=== PATIENT | female | born 1980 | race Caucasian/White ===

== ENCOUNTER 2016-09-03 00:47 | Inpatient (IN) | payer OTHER ==
[~2016-09-03] VITALS: Ht 165.1 cm; Wt 94.3 kg
[2016-09-03] MEDS ORDERED: Dextrose 5% Lactated Ringer's 1,000 ML IV SCH (07:34)
[2016-09-03] MEDS ORDERED: Insulin Human REGular Inj 100 UNIT in 0.9% Sodium Chloride 100 ML IV SCH (07:34)
[2016-09-03] MEDS ORDERED: Hemorrhage Kit, Post Partum XX ONE (07:35)
[2016-09-03] MEDS ORDERED: Oxytocin 10 Unit/mL Inj IM PRN (07:35)
[2016-09-03] MEDS ORDERED: Methylergonovine 0.2 mg/mL Inj IM PRN (07:35)
[2016-09-03] MEDS ORDERED: Sodium Chloride LOK Flush 10 mL Syringe IVFLUSH PRN (07:35)
[2016-09-03] MEDS ORDERED: Oxytocin 30 Units/500 mL LR 30 UNITS in IV Premix 1 EACH IV PRN (07:35)
[2016-09-03] MEDS ORDERED: Carboprost 250 mCg/mL Inj IM PRN (07:35)
[2016-09-03] MEDS ORDERED: Misoprostol 25 mCg/0.25 Tablet VAGINAL SCH (07:40)
--- NOTE | 2016-09-03 08:03 | PCM.HPOB ---
Subjective Date of Service: Sep 03, 2016 Referring Provider: Admitting Physician: Pooja Flanagan MD Primary Care Physician: Pooja Flanagan MD Attending Physician: Pooja Flanagan MD Chief Complaint Induction of labor for poorly controlled type 2 diabetes History of Present History of Present Illness Avril Burch is a 35 year old primagravid woman at 39 weeks gestation with a PMH of poorly controlled DM2 with an A1c of 9.2 in early , polycystic ovarian syndrome, active 1/2 ppd smoker, and infertility requiring clomid for conception. She presents today for induction of labor at 39 weeks due to poorly controlled DM2. Typically her fasting sugars are quite elevated in the 150-190 range, she is insulin dependent using 46U in the am and 86U pm. 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 Initial US revealed possible IUGR, but this has since resolved with the last scan indicating weight in the 30th percentile. The remainder of her labs have been unremarkable. Morning fasting glucose on the day of admission was 130. OB History: (1), Para (0) Past Medical History Obstetrical History: Primagravid Gynecologic History: Polycystic ovarian syndrome Medical History: DM2 Hx Tobacco Use: Yes Smoking Status: Current Every Day Smoker (1/2 ppd) Past Family History Living Arrangement: with Family Genetic Screening/Counseling Genetic Screening/Counseling: Negative Baby father-had child w defect: No Review of Systems Constitutional: Y: Change of appitite, Chills, Dizziness, Fever, Malaise, Other , Pain, Sweats, Weakness, Weight loss Eyes: Denies: Blurred Vision, Conjunctive Inflammation, Double Vision, Eyelid Inflammation, Other, Pain, Redness, Vision Changes ENT: Denies: Dental Problems, Dysphagia, Ear Discharge, Ear Pain, Hoarseness, Membranes Dry, Nasal Congestion, Nose Discharge, Nose Pain, Other, Throat Pain, Tinnitus, Ulcers/Sores in Mouth Cardiovascular: Denies: Chest Pain, Edema, Orthopnea, Other, Palpitations, SOB while laying flat Respiratory: Denies: Cough, Cough with bloody sputum, Other, Pleuritic Chest Pain, Pleuritic Chest Pain, SOB with Exertion, Sputum, Wheezing Gastrointestinal: Denies: Abdominal Pain, Black tarry stools, Blood in stool ( red), Change in Appetite, Constipation, Diarrhea, Epigastric pain, Heartburn, Nausea, Other, Use of Laxatives, Vomiting Genitourinary: Denies: Anuria, Change in Frequency, Dysuria, Hematuria, Incontinence, Nocturia, Other, Retention Musculoskeletal: Reports: Back Pain, Denies: Deformity, Limitation of Function, Neck Pain, Other, Redness, Shoulder Pain, Swelling Skin/Breasts: Denies: Bruising, Discharge, Dry or Flakiness, Jaundice, Lesions , Masses, Mastalgia, Other, Rash, Scars, Ulcers Skin: Denies: Bruising, Dry or Flakiness, Jaundice, Lesions, Other, Rash, Scars , Ulcers Neurological: Denies: Change in Speech, Confusion, Dizziness, Incoordination, Numbness, Other, Seizures, Somnolence, Tremors, Weakness Psychologic: Reports: Anxious, Denies: Agitation, Apprehensive, Depression, Insomnia, Instability, Nervousness, Other Allergy Coded Allergies: No Known Allergies (Unverified , 09/03/16) Exam Constitutional: Well-developed, Well-nourished, Obese, Well-groomed HEENT: Atraumatic, PERRLA, EOMI, Scleral Anicteric, Mucous Membr Moist/[place] Lungs: Clear to Auscultation, Clear to Percussion, Normal Air Movement Heart: Regular Rate/Rhythm, Normal S1, Normal S2, No Murmurs/Rubs/Gallops Abdomen: Gravid Extremities: Edema (mild) Neurological/Psychiatric: Alert, Oriented X3, Cooperative, No Acute Distress Neuro: Grossly Neurologically Intact Labs/Diagnostics Maternal Blood Type: AB Hx Rho(D) Immune Globulin: No Group B Strep Results: Negative Previous Infant with GBS: No Rubella: Non-Immune Lab History: Positive for: Hx Herpes OB Intrapartum Assessment/Plan Problems: (1) Type 2 diabetes mellitus Plan: -Usual dosing 46U am, 86U pm, took half dose of insulin on day of admit -Plan on starting out on medium dose Normal insulin sliding scale with BG check q2hr -Will transition to insulin drip during active labor or if BG not controlled with sliding scale -Diabetic constant carb diet Status: Acute ICD Code: E11.9 (2) Elective induction of labor planned Plan: -Cervix currently closed, 50% effaced, -3 station -Begin with Misoprostol -Likely transition to balloon dilation once cervix opens Status: Acute ICD Code: [id number] Pain Evaluation: Adequate Pain Control Intrapartum plan induction as above Post plan: Continue routine post care Attending Statement at 39 weeks, type 2 diabetes, induction of labor, as recommended by MFM. With unfavorable cervix. Will need start with cervical ripening. Will do sliding scale to control her glucose level. Patient will eat light fool during cervical ripening. Plan insulin drip with active labor. Edwin Joseph DO Sep 03, 2016 08:03 Pooja Flanagan MD Sep 05, 2016 15:49
[2016-09-03 08:18] LABS: Mean Corpuscular Hemoglobin 28.4 pg (27.0-35.0); Mean Corpuscular Volume 85.4 fL (81-100)
[2016-09-03] MEDS: Lactated Ringer's 1,000 ML IV PRN (12:54)
[2016-09-03] MEDS: Insulin Human REGular 300 Unit/3 mL Inj SUBQ SCH (16:10)
[2016-09-04] MEDS: Lactated Ringer's 1,000 ML IV PRN ×3 (03:15→10:09)
--- NOTE | 2016-09-04 07:47 | PCM.PNOBIP ---
Subjective Date of Service Sep 04, 2016 Visit History Avril Burch is a 35 year old primagravid woman at 39 weeks gestation with a PMH of poorly controlled DM2 with an A1c of 9.2 in early , polycystic ovarian syndrome, active 1/2 ppd smoker, and infertility requiring clomid for conception. She presents today for induction of labor at 39 weeks due to poorly controlled DM2. Typically her fasting sugars are quite elevated in the 150-190 range, she is insulin dependent using 46U in the am and 86U pm. 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 Initial US revealed possible IUGR, but this has since resolved with the last scan indicating weight in the 30th percentile. The remainder of her labs have been unremarkable. Morning fasting glucose on the day of admission was 130. She was initially administered cervidil, which failed to produce any great change in the cervix so balloon dilation was initiated. That too has thus far failed to induce any significant cervical dilation as of 7:00 am. Subjective Avril states that she is feeling quite tired because she has been having uncomfortable contractions all evening that precluded sleep. She is expressing significant frustration today that she hasn't made much cervical progress. She denies nausea, but states that she has an overall feeling of "not feeling well" , which she was unable to define any further. Pain Management: PO pain meds Group B Strep Results: Negative Rubella: Non-Immune Blood Type: AB Labs Laboratory Tests 09/03/16 08:00: White Blood Count 11.3, Red Blood Count 3.84, Hemoglobin 10.9, Hematocrit 32.8, Mean Corpuscular Volume 85.4, Mean Corpuscular Hemoglobin 28.4, Mean Corpuscular Hemoglobin Concent 33.2, Red Cell Distribution Width 13.2, Platelet Count 309 Exam Vital Signs Vital Signs Contraction frequency in minutes: MVUs: Vital Signs: VS reviewed, stable Heart Tracings Heart Tones Baseline bpm Tocometry/IUPC Contraction frequency in minutes: MVUs: Exam Abdomen: Fundus firm, Abdomen soft Extremities: No tenderness/swelling, Edema 1+ Lungs: Clear to Auscultation, Clear to Percussion, Normal Air Movement Heart: Regular Rate/Rhythm, Normal S1, Normal S2, No Murmurs/Rubs/Gallops General: Alert, Oriented X3, Cooperative, No Acute Distress OB Intrapartum Assessment/Plan Problems: (1) Type 2 diabetes mellitus Plan: -Usual dosing 46U am, 86U pm, took half dose of insulin on day of admit -Plan on starting out on medium dose Normal insulin sliding scale with BG check q2hr -Will transition to insulin drip during active labor or if BG not controlled with sliding scale -Diabetic constant carb diet Status: Acute ICD Code: E11.9 (2) Elective induction of labor planned Plan: -Balloon removed early AM 09/04/16 -Patient currently declining further Misoprostol -Cervix essentially closed as of AM 09/04/16 -Will continue to monitor and encourage further cervical ripening Status: Acute ICD Code: [id number] Intrapartum plan: Continue expected management Intrapartum Pain Management: May have epidural when desired Pain Evaluation: Adequate Pain Control Post plan: Continue routine post care Attending Statement at 39 weeks. Type 2 diabetes. Induction of labor. She has been through 24 hrs of cervical ripening. No improvement of cervix. head still floating. I discussed with patient of the situation and plan. At this time, her glucose is under control. heart tracing is reassuring. We could continue with cervical ripening. But according to the process of last 24 hrs, it will be a lone process. There's still the chance of failed induction. And by pelvic examination her pelvis is borderline. Patient declined to continue with cervical ripening and chose to have c/section. I also agree this is a reasonable choice at this moment. But we discussed in detail about the risk of c /section too. Informed consent signed. Edwin Joseph DO Sep 04, 2016 07:14 Pooja Flanagan MD Sep 05, 2016 16:02
[2016-09-04] MEDS: Insulin Human REGular 300 Unit/3 mL Inj SUBQ SCH ×4 (08:14→18:30)
[2016-09-04] MEDS ORDERED: Acyclovir 400 mg Tablet PO SCH (08:30)
--- NOTE | 2016-09-04 08:38 | PCM.HPANE ---
Patient Data Date of Service: Sep 04, 2016 Surgeon Admitting Provider:Pooja Flanagan MD Attending Provider:Pooja Flanagan MD Primary Care Physician:Pooja Flanagan MD Other Provider:Miguel Ángel Calderon Anesthesia Reason for Visit Induction INDUCTION Ht/WT & BMI Body Mass Index Allergies Coded Allergies: No Known Allergies (Unverified , 09/03/16) Diabetes History Hx Diabetes?: Yes Type of Diabetes: Type II Glycemic Control: Insulin Dependent Current Bedside Blood Glucose: 224 Medications Hypertension Medication: No Home Meds Incl Beta Deyanira: No History History of ENT Problems?: No Hx of Heart Problems?: No Other History/Comment tobacco Hx Neurologic Problems?: No Gastrointestinal History: Positive for:: Gastroesphageal Reflux Other History/Comment Female Hx: Positive for:: Currently Hx Musculoskeletal Problems?: No Hx of Psycho/Social Problems?: No Bedside Blood Glucose: 224 Smoking Status: Current Every Day Smoker (08/31 ppd) Stop/Bang Treated for Sleep Apnea?: No Do You Have a CPAP Machine?: No S-Snoring: Do You Snore Loudly: No T-Tired: feel tired, fatigued: No O-Obsered: Observed not breath: No P-Blood Pressure: treated: No B- Body Mass Index > 35 kg/m2: No A- Age over 50: No N- Neck Large Circumference: No G- Gender Male: No DOTTIE Risk Assessment: Low Risk, <3 Yes Risk Assessment Category Category 1A: Patient has history of documented sleep apnea, and HAS NOT received any narcotic, sedative or anesthesia administration during this stay. Category 1B: Patient has history of documented sleep apnea, and HAS received any narcotic , sedative or anesthesia administration during this stay Category 2: Patient has SUSPECTED Obstructive Sleep Apnea, and HAS received any narcotic , sedative or anesthesia administration during this stay. Category 3: Patient has SUSPECTED Obstructive Sleep Apnea and HAS NOT received narcotic, sedative or anesthesia administration during this stay. Category 4: Outpatient in Procedural Areas with known sleep apnea or who screen positive for High Risk via the STOP/BANG questionnaire. Exam Exam General Appearance: Oriented X3 HEENT/AIRWAY: MP 2 Lungs: Clear to Auscultation Heart: Exam Unremarkable Meds/Labs/Diagnostics Bedside Blood Glucose: 224 Labs Test 09/03/16 08:00 White Blood Count 11.3th/mm3 (3.8-10.1) Red Blood Count 3.84mil/mm3 (3.90-5.20) Hemoglobin 10.9g/dL (12.0-15.6) Hematocrit 32.8% (35.0-46.0) Mean Corpuscular Volume 85.4fL (81-100) Mean Corpuscular Hemoglobin 28.4pg (27.0-35.0) Mean Corpuscular Hemoglobin Concent 33.2% (32.0-37.0) Red Cell Distribution Width 13.2% (12.3-15.4) Platelet Count 309bil/L (150-400) Plan Impression Patient chart reviewed, patient interviewed and anesthestic plan with risks, benefits, and alternatives discussed, and informed consent obtained. ASA Physical Status: ASA3 Severe Disease Anesthetic Plan: SAB Bene/Risks/Altern/Consents: Yes HP Complete Prior to Induction: Yes Other Patient last ate peanut butter toast at 645am. I have discussed this with the attending OB physician who feels that Ms Burch's case is urgent in the setting of prolonged stage 1 labor after failed induction in the setting of uncontrolled diabetes. Her concern is that this represents a risk to mother and baby. I have reiterated NPO guidelines, and we both acknowledge that in the setting of urgent cases, NPO guidelines becomes a risk/benefit proposition. I defer to her to help me weigh the benefits and risks of Ms Burch's medical condition as the attending OB. We have elected to proceed prior to 8 hr NPO guideline in this particular situation. I have discussed this with the patient, and she acknowledges and accepts proceeding prior to 8 hrs. Valentino Moore MD Sep 04, 2016 08:38
[2016-09-04] MEDS ORDERED: CeFAZolin Inj 2 GM in IV Premix 1 EACH IV SCH (09:30)
[2016-09-04] MEDS ORDERED: Sodium Citrate-Citric Acid 15 mL Solution PO SCH (09:30)
[2016-09-04] MEDS ORDERED: fentaNYL-PF 50 mCg/mL 2 mL Inj IVPUSH PRN (12:30)
[2016-09-04] MEDS ORDERED: EPHEDrine Sulfate 50 mg/mL Inj IVPUSH PRN (12:30)
[2016-09-04] MEDS ORDERED: HYDROmorphone 1 mg/mL Inj IVPUSH PRN (12:30)
[2016-09-04] MEDS ORDERED: Ondansetron 2 mg/mL 2 mL Inj IVPUSH PRN (12:30)
[2016-09-04] MEDS ORDERED: Atropine 0.4 mg/mL Inj IV PRN (12:30)
[2016-09-04] MEDS ORDERED: Oxytocin 30 Units/500 mL LR 30 UNITS in IV Premix 1 EACH IV PRN (12:55)
[2016-09-04] MEDS ORDERED: Methylergonovine 0.2 mg/mL Inj IM PRN (12:55)
[2016-09-04] MEDS ORDERED: Oxytocin 10 Unit/mL Inj IM PRN (12:55)
[2016-09-04] MEDS ORDERED: Acetaminophen IV 1,000 MG in IV Premix 1 EACH IV PRN (12:55)
[2016-09-04] MEDS ORDERED: HYDROcodone-APAP 5-325 mg Tablet PO PRN (12:55)
[2016-09-04] MEDS ORDERED: Carboprost 250 mCg/mL Inj IM PRN (12:55)
[2016-09-04] MEDS ORDERED: LANOlin HPA 7 Gm Ointment TOPICAL PRN (12:55)
[2016-09-04] MEDS ORDERED: Hemorrhage Kit, Post Partum XX ONE (12:55)
[2016-09-04] MEDS ORDERED: Sodium Chloride LOK Flush 10 mL Syringe IVFLUSH PRN (12:55)
[2016-09-04] MEDS ORDERED: Oxytocin 30 Units/500 mL LR Premix IV ONE (13:06)
--- NOTE | 2016-09-04 13:45 | PROG NOTE ---
[address] [address] PROGRESS NOTE PATIENT: BROOKE NUNO : 1980 MR#: [id number] ADMIT: 09/03/2016 JOB ID: [id number] DATE: 09/04/2016 This is a 35-year-old female 1, para 0, at 39 weeks. She was admitted yesterday on September 03, 2016, in the morning for induction of labor for type 2 diabetes in which the glucose is not well controlled. After the patient was admitted she was examined and her cervix is not favorable. It is closed, long, posterior, moderate, and the head was floating. Cytotec was given for cervical ripening yesterday morning and the patient started to have frequent contractions with one dose of Cytotec but the contractions were mild. There was no 2nd dose able to be given because of the frequent although mild contractions. I examined her at 12:00 and 5:00. There was no significant change of her cervix. At 5:00 she still had contractions every 3-4 minutes. After discussion, the plan was made to have a cervical ripening balloon. It was placed at around 5 p.m. yesterday. The patient tolerated the ripening balloon. She started to have contractions after the balloon was placed. The balloon stayed for 12 hours and removed in the morning around 5:30 and noticed that there was no change of her cervix. I discussed with patient at 7:00 this morning. Talked about for further cervical ripening we could use more dosage of Cytotec or Cervidil but at this time with the cervix I am not able to the use induction with Pitocin. She is not going to respond well to the Pitocin induction. After discussion, the patient does not want to continue with induction and she chose to have a primary section. I also think this is an acceptable choice with borderline pelvis from previous examination and still has a borderline pelvic examination and her type 2 diabetes is not well controlled and she went through more than 24 hours of cervical ripening and there is not any progress. The patient, if she planned to continue with ripening and induction, it will be expected that it will be a long process. The patient, at the same time, understood that the procedure was a surgery and had its own risks. I discussed with the patient about the risk of infection, bleeding, injury to the organs around the uterus including but not limited to the bladder, ureters, major vessels, nerves, and bowels, and talked with patient specifically for the risk of infection. Informed consent signed. The patient decided to have a primary section.
[2016-09-04] MEDS: Lactated Ringer's 1,000 ML IV SCH ×2 (13:51→22:12)
--- NOTE | 2016-09-04 14:17 | OP ---
[address] [address] OPERATIVE REPORT PATIENT: BROOKE NUNO : 1980 MR#: [id number] ADMIT: 09/03/2016 JOB ID: [id number] DATE OF SURGERY: 09/04/2016 IDENTIFYING DATA: This is a 35-year-old female, 1, para 1, now status post primary section. SURGEON: Pooja Flanagan MD. COMPOSING ROOM SUPERVISOR: Edwin Joseph DO, third year resident. INDICATION OF PROCEDURE: A 35-year-old female, 1, para 0, at 39 weeks. Type 2 diabetes not well controlled. Failed induction. Before the decision of the section, discussed with patient about the benefits, risks of primary section including infection, bleeding, injury to organs around the uterus including, but not limited to, the bladder, ureters, major vessels, nerves, and bowel. Informed consent signed. PREOPERATIVE DIAGNOSIS(ES): 1. A 35-year-old female, 1, para 0, at 39 weeks. 2. Type 2 diabetes, not well controlled. 3. Failed induction. POSTOPERATIVE DIAGNOSIS(ES): 1. A 35-year-old female, 1, para 0, at 39 weeks. 2. Type 2 diabetes, not well controlled. 3. Failed induction. PROCEDURE IN DETAIL: The patient was transferred to the operating room. Antibiotics were given before the procedure. The SCDs were on. After anesthesia was noted to be adequate, she was placed in dorsal supine position with leftward tilt. She was prepared and draped in normal sterile fashion. A Roa catheter inserted for urine drainage. A transverse incision was placed with scalpel and this incision was carried through to the underlying fascia with Bovie. A transverse incision was placed on fascia and extended bilaterally by Barrientos scissors. The superior aspect of the incision was grasped by straight Shabbir, tented up. The underlying rectus muscle was dissected off. The inferior aspect of the incision was grasped by straight Shabbir tented up. The underlying rectus muscle dissected off. The rectus muscle was in the midline. The underlying peritoneum identified and entered sharply. This incision was extended both sharply and bluntly. Then, the lower blade inserted to expose the lower segment of the uterus. The vesicouterine peritoneum identified and entered sharply with Bardolph scissors and extended bilaterally by Kira scissors. The bladder blade created digitally. The lower blade reinserted to expose the lower segment of the uterus. A transverse incision was placed on the lower segment of the uterus and extended bilaterally by bandage scissors. At this time, the membrane was ruptured. All the instruments cleared from the field. It was noticed that the head still floating and with fundal pressure, there was difficulty delivering the head. At this time, the vacuum was applied to deliver the head and then the shoulders and chest delivered without difficulty. There was one round nuchal cord loose and released, and the cord clamped and cut. The infant was handed to awaiting radio board operator announcer. The cord blood gas was collected. Regular cord blood collected. The placenta delivered spontaneously completely and examined with three-vessel cord. At this time, the uterus was exteriorized. All debris and clots cleared from the field. The incision was closed by 0 Vicryl continuously with locked fashion. The second layer with the same suture was placed for imbrication. Hemostasis confirmed after the placement of the sutures. The pelvic cavity was irrigated by warm normal saline and the bilateral adnexa examined. Normal ovaries and normal tubes. The uterus was returned back to the abdominal cavity. The incision was re-examined with good hemostasis. At this time, the fascia was reapproximated with 0 Vicryl continuously. The subcutaneous connective tissue was reapproximated with 2-0 Vicryl continuously. The skin was closed by 4-0 Monocryl on a Devonte needle. The patient tolerated the procedure well. All instrument, needles, laps and gauzes counted correct twice. The EBL during the procedure was 800 cc. The IV fluid in was 1.5 L. The urine output was 200 cc which was clear. The patient transferred to recovery room in a stable condition.
[2016-09-04] MEDS ORDERED: Ondansetron 2 mg/mL 2 mL Inj ONE (14:19)
[2016-09-04] MEDS ORDERED: Propofol 10,000 mCg/mL 20 mL Inj ONE (14:19)
[2016-09-04] MEDS ORDERED: EPHEDrine/NS 5 mg/mL 5 mL Syringe ONE (14:19)
[2016-09-04] MEDS ORDERED: Morphine PF 1 mg/mL 10 mL Inj ONE (14:35)
--- NOTE | 2016-09-04 16:36 | PCM.ANEP1 ---
Post Anesthesia Phase 1 PACU Phase 1 Assessment Date of Service: Sep 04, 2016 Anesthetic Administered: SAB Level of Alertness: Awake, talking ALCANTARA's with Equal Strength: No Pain Scale Score: 3 Nausea or Vomiting: No Lungs: Clear to Auscultation Valentino Moore MD Sep 04, 2016 16:36
--- NOTE | 2016-09-04 16:37 | PCM.ANEP2 ---
Post Anesthesia Evaluation ASA/CMS Post Anesthesia VS in Patient's Normal Range?: Yes Resp Stable; Airway Patent?: Yes CV Function & Hydration Stable: Yes Mental Status Recovered?: Yes Pain control Satisfactory?: Yes N/V Control Satisfactory?: Yes Additional Comments block wearing off with full sensation in lower extremities b/l Valentino Moore MD Sep 04, 2016 16:37
[2016-09-04] MEDS: Acyclovir 400 mg Tablet PO SCH (20:50)
[2016-09-04] MEDS: Insulin Human NPH 100 Unit/mL 3 mL Inj SUBQ SCH (23:49)
[2016-09-05] MEDS: Insulin Human REGular 300 Unit/3 mL Inj SUBQ SCH ×2 (02:29→18:21)
[2016-09-05 06:44] LABS: Mean Corpuscular Hemoglobin 28.4 pg (27.0-35.0); Mean Corpuscular Volume 87.1 fL (81-100)
[2016-09-05] MEDS: Acyclovir 400 mg Tablet PO SCH ×2 (08:34→20:52)
[2016-09-05] MEDS: Pantoprazole 40 mg ER24 Tablet PO SCH (08:34)
[2016-09-05] MEDS: Insulin Human NPH 100 Unit/mL 3 mL Inj SUBQ SCH ×2 (08:34→22:00)
[2016-09-05] MEDS: oxyCODONE-Acetamin 5-325 mg Tablet PO PRN ×2 (18:08→21:59)
[2016-09-06] MEDS: oxyCODONE-Acetamin 5-325 mg Tablet PO PRN ×4 (02:05→11:58)
[2016-09-06] MEDS: Pantoprazole 40 mg ER24 Tablet PO SCH (07:47)
[2016-09-06] MEDS: Acyclovir 400 mg Tablet PO SCH (07:48)
[2016-09-06] MEDS: Insulin Human NPH 100 Unit/mL 3 mL Inj SUBQ SCH (09:01)
--- NOTE | 2016-09-06 14:08 | PCM.DIMED ---
Discharge Instructions Date of Service Sep 06, 2016 Dates of Hospitalization Sep 03, 2016 at 07:09 Diet No restrictions Activity No restrictions Call your provider Fever or Chills, Shortness of breath, Bleeding, Chest pain, Vomitting, Excessive diarrhea, Weakness (unilateral) Patient Instructions Follow-up with PCP in: 2 weeks Randall Noble MD Sep 06, 2016 14:08
[2016-09-06] MEDS ORDERED: DOCU-41 PO (14:12)
[2016-09-06] MEDS ORDERED: IBUP-1827 PO (14:12)
[2016-09-06] MEDS ORDERED: FERR-26 PO (14:12)
[2016-09-06] MEDS ORDERED: OXYC1TAB24 PO (14:12)
--- NOTE | 2016-09-06 19:57 | DIS ---
[address] [address] DISCHARGE SUMMARY PATIENT: BROOKE NUNO : 1980 MR#: [id number] ADMIT: 09/03/2016 JOB ID: [id number] DIS: 09/06/2016 ADMITTING DIAGNOSES: 1. A 35-year-old, 1, para 0, at 39 weeks. 2. Type 2 diabetes poorly controlled. 3. Induction of labor. DISCHARGE DIAGNOSES: 1. A 35-year-old, 1, para 1. 2. Type 2 diabetes. 3. Failed induction of labor. 4. Status post primary low transverse section. The patient is a 35-year-old, 1, para 1 now, who was admitted to Labor and Delivery on September 03, 2016, at 39 weeks for induction of labor because of poorly controlled type 2 diabetes. She underwent cervical ripening with Cytotec and cervical ripening balloon. Despite all the efforts the induction of labor failed and patient underwent primary low transverse section on September 04, 2016. It went uncomplicated. Estimated blood loss was 800 mL. Delivered female with weight 3269 g, Apgars 8 at one minute and 9 at five minutes. The patient was placed on a sliding scale shortly before delivery and . Subsequently, she received insulin at half of the dose of her pre- level. Her blood glucose was well controlled. The patient was seen on postoperative day one. She was stable, ambulating, breast-feeding, afebrile. The abdomen was soft and nondistended. The incision was dry, clean, and intact. The dressing was removed, the steri strips were clear. The fundus was firm. There was no vaginal bleeding. Postoperative day one, labs showed Hematocrit was 23.6. Platelet count 265. The patient received supplemental iron. She did not have any complaints regarding anemia. On day two, September 06, 2016, the patient was doing well, ambulating, had bowel movements, no problems with breast feeding. The exam was benign. The abdomen was soft and nondistended. The pain was well controlled with Motrin and Percocet for breakthrough pain. Pain scale maximum 2/10. The patient was sent home in stable condition with all discharge criteria met on September 06, 2016. She received discharge medications includin. Motrin 800 mg p.o. t.i.d. p.r.n. 2. Percocet 5/325 mg p.o. q.i.d. p.r.n. for breakthrough pain. 3. Colace 100 mg p.o. b.i.d. p.r.n. 4. Ferrous sulfate 325 mg p.o. b.i.d. A followup visit in the clinic was scheduled in two weeks. [facility]
--- NOTE | 2016-09-08 11:46 | PATH ---
SURGICAL PATHOLOGY Attending Physician:Pooja Flanagan MD CASE STATUS: Signed Out PATIENT NAME: BROOKE NUNO PID: [id number] : 1980 DATE COLLECTED:09/04/2016 00:00 SPECIMEN: Placenta CLINICAL HISTORY: 1). PLACENTA FINAL DIAGNOSIS: 1.PLACENTA: MATURE PLACENTA (448 GRAMS) WITH ACUTE CHORIOAMNIONITIS. NEGATIVE FOR HEMATOMAS OR INFARCTS. ICD10 CODE O41.1 GROSS DESCRIPTION: The specimen is received in formalin, labeled with the patient's name and consists of an intact placenta and includes placental disc (448 g, 17.5 x 15.2 x 2.7 cm), portion of umbilical cord (length-7.7 cm, diameter-1.2 x 1.0 cm) and membranes. The membranes are minimally attached and are translucent. The rupture site cannot be determined. The umbilical cord is attached 5.5 cm from the edge of the placenta and contains 3 vessels. The surface is smooth and shiny with no evidence of meconium. The maternal surface is dark maroon with normal cotyledon formation. The placental disc is spongy with no hematomas, infarcts, nodules, masses, or lesions. Section code: (A) edge of placenta with membranes, umbilical cord; (B-D) placenta, 3 full thickness sections. 09/05/16 JM MICRO DESCRIPTION: See diagnosis. ICD-9 CODES: CPT CODES: 1: 89874 Electronically Signed Out Janine Johnson MD [facility] [address], [place] [address] Technical component performed at [facility], [facility] [address], [place], [address]
--- NOTE | 2016-09-17 11:30 | PROG NOTE ---
[address] [address] PROGRESS NOTE PATIENT: BROOKE NUNO : 1980 MR#: [id number] ADMIT: 09/03/2016 JOB ID: [id number] DATE: 09/05/2016 This is a late dictation for missing documentation. SUBJECTIVE: This is a 35-year-old female. She is 1, para 1 now, status post primary section after failed induction for type 2 diabetes at 39 weeks gestation. The patient is doing well today. Her pain is well controlled by p.o. medication. The Roa catheter was removed, and she has not urinated yet. She was able to tolerate her diet. No nausea or vomiting. PHYSICAL EXAMINATION: She is afebrile. Cardiac: No murmur. Pulmonary: Bilaterally clear. Abdomen: Soft, appropriately tender uterus, firm, well contracted. Incision clean and dry. Extremities: Nontender. Lochia moderate to minimal, not foul smelling. ASSESSMENT AND PLAN: A 35-year-old female, 1, para 1, status post primary section for failed induction of labor. Postoperative day one. 1. We will continue with p.o. medication for pain control. 2. Encourage urinating. 3. Encourage ambulating. 4. Encourage diabetic diet. 5. Today, we will continue with half of her insulin, and we will not restart her metformin. Will do finger glucose testing before and after meals to control her glucose using insulin sliding scale. 6. The patient encouraged to take frequent fluids. 7. Expect discharge home tomorrow.
== END 2016-09-06 15:12 | disposition home or self-care (01) | DRG 765 ==
LOC: FBC 07:09
PROVIDERS: ADMIT Obstetrics & Gynecology; ATTEND Obstetrics & Gynecology
PROC: 3E0P7GC Introduction of Other Therapeutic Substance into Female Reproductive, Via Natural or Artificial Opening (ICD-10-PCS; 2016-09-03)
PROC: 10D00Z1 Extraction of Products of Conception, Low, Open Approach (ICD-10-PCS; principal; 2016-09-04 11:08)
DX: O24.113 Pre-existing type 2 diabetes mellitus, in pregnancy, third trimester (principal); O98.513 Other viral diseases complicating pregnancy, third trimester; E11.65 Type 2 diabetes mellitus with hyperglycemia; O61.0 Failed medical induction of labor; O99.333 Smoking (tobacco) complicating pregnancy, third trimester; F17.210 Nicotine dependence, cigarettes, uncomplicated; Z3A.39 39 weeks gestation of pregnancy; O99.283 Endocrine, nutritional and metabolic diseases complicating pregnancy, third trimester; E28.2 Polycystic ovarian syndrome; Z79.4 Long term (current) use of insulin; B00.9 Herpesviral infection, unspecified